=== PATIENT | male | born 1955 | race Caucasian/White ===

== ENCOUNTER 2022-04-05 08:39 | Emergency (ER) | payer OTHER ==
[~2022-04-05] VITALS: Wt 89.4 kg
[~2022-04-05 08:39] MED LIST: MEDROL DOSEPAK4 MG PO
[2022-04-05] MEDS ORDERED: HYDROCODONE-AC1 EAC1 PO (09:37)
[2022-04-05] MEDS ORDERED: CLEOCIN HCL150 MG PO (09:37)
== END 2022-04-05 09:46 | disposition home or self-care (01) ==
LOC: ED 08:39
DX: K08.89 Other specified disorders of teeth and supporting structures (principal); F17.200 Nicotine dependence, unspecified, uncomplicated